=== PATIENT | female | born 1995 | race Caucasian/White ===

== ENCOUNTER 2023-01-06 20:40 | Emergency (ER) | payer MEDICAID ==
[~2023-01-06] VITALS: Ht 167.6 cm; Wt 90.7 kg
[2023-01-06 21:17] VITALS: BP 121/57; PULSE 102; RESP 18; TEMP 97.8; O2SAT 99
--- NOTE | 2023-01-06 21:20 | NUR ---
TO LOBBY A/W BED AMBULATORY
[2023-01-06] MEDS ORDERED: ALBUTEROL SULFATE/IPRATROPIU 3 ML SOL IH ONE (21:55)
[2023-01-06] MEDS ORDERED: DEXAMETHASONE 10 MG/ML VIAL IM ONE (21:55)
[2023-01-06 22:12] VITALS: PULSE 110; RESP 19; O2SAT 100
--- NOTE | 2023-01-06 22:14 | NUR ---
PT TO BED 8
[2023-01-06 22:45] VITALS: O2SAT 99
[2023-01-06] MEDS ORDERED: BENZ-300 PO (22:57)
[2023-01-06] MEDS ORDERED: IBUP-2213 PO (22:57)
[2023-01-06] MEDS ORDERED: ACET-10509 PO (22:57)
[2023-01-06] MEDS ORDERED: PROM118S5 PO (22:57)
--- NOTE | 2023-01-06 23:02 | NUR ---
PT SP02 99% AFTER NEB TX. PT HAS HAD A NONPRODUCTIVE COUGH X 2 DAYS +DARK GREEN/YELLOW PHELGM. PT DENIES CP PT IS SOB . SKIN WARM AND DRY. RESP EVEN AND UNLABORED. NO HX OF ASTHMA. 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 NKDA NO MED HX
[2023-01-06 23:12] VITALS: PULSE 106; RESP 17
--- NOTE | 2023-01-06 23:12 | NUR ---
Patient discharged with v/s stable. Written and verbal after care instructions given and explained. Patient verbalized understanding. Ambulatory with . All questions addressed prior to discharge. Advised to follow up with PMD.
[2023-01-06 23:13] VITALS: O2SAT 96
== END 2023-01-06 23:12 | disposition home or self-care (01) ==
LOC: MED 20:40
DX: J04.0 Acute laryngitis (principal); B97.89 Other viral agents as the cause of diseases classified elsewhere; Z20.822 Contact with and (suspected) exposure to COVID-19; Z79.899 Other long term (current) drug therapy; Z79.1 Long term (current) use of non-steroidal anti-inflammatories (NSAID)
CPT/HCPCS: 70360; 71045; 87426; 87804; 94640; 96372; 99284; J1100

== ENCOUNTER 2023-03-01 11:45 | Emergency (ER) | payer MEDICAID ==
[~2023-03-01] VITALS: Ht 165.1 cm; Wt 87.1 kg
[~2023-03-01 11:45] MED LIST: ACET-10509 PO; BENZ-300 PO; IBUP-2213 PO; PROM118S5 PO
[2023-03-01 12:15] VITALS: BP 128/91; PULSE 84; RESP 20; TEMP 98; O2SAT 99
[2023-03-01] MEDS ORDERED: KETOROLAC 30 MG/ML VIAL IM ONE (13:05)
[2023-03-01] MEDS ORDERED: FLONAS NS (13:14)
[2023-03-01] MEDS ORDERED: PROM118S5 PO (13:14)
[2023-03-01] MEDS ORDERED: ERYT5OIN51 OP (13:14)
[2023-03-01] MEDS ORDERED: LIDO15SO4 PO (13:14)
[2023-03-01] MEDS ORDERED: IBUP-2213 PO (13:14)
[2023-03-01] MEDS ORDERED: SUD30 PO (13:14)
[2023-03-01 14:03] VITALS: BP 125/89; PULSE 85; RESP 18; TEMP 98; O2SAT 98
== END 2023-03-01 14:03 | disposition home or self-care (01) ==
LOC: MED 11:45
DX: J06.9 Acute upper respiratory infection, unspecified (principal); H10.89 Other conjunctivitis; B96.89 Other specified bacterial agents as the cause of diseases classified elsewhere; J02.9 Acute pharyngitis, unspecified; Z79.899 Other long term (current) drug therapy
CPT/HCPCS: 99283